=== PATIENT | female | born 1950 | race Two or more races ===

== ENCOUNTER 2022-06-12 12:44 | Outpatient (CLI) | payer OTHER | END 2022-06-12 12:47 | disposition home or self-care (01) | LOC: NUCLEAR 12:44 | PROVIDERS: ATTEND Internal Medicine Sports Medicine | DX: C73 Malignant neoplasm of thyroid gland (principal); E89.0 Postprocedural hypothyroidism | CPT/HCPCS: 79005; A9517 ==